=== PATIENT | male | born 1990 | race African-American/Black ===

== ENCOUNTER 2018-06-23 05:04 | Emergency (ER) | payer OTHER ==
[~2018-06-23] VITALS: Ht 198.1 cm; Wt 140.6 kg
[2018-06-23] MEDS ORDERED: SODIUM CHLORIDE 0.9% 1,000 ML IV ONE (05:30)
[2018-06-23] MEDS ORDERED: FAMOTIDINE (10MG/ML) 2ML VL IV ONE (05:30)
[2018-06-23] MEDS ORDERED: methylPREDNISolone SOD SUCC 125 MG/2 ML VL IV ONE (05:30)
[2018-06-23] MEDS ORDERED: EPINEPHrine HCL 1 MG/1 ML AMP SC ONE (05:30)
[2018-06-23 07:45] VITALS: BP 114/58
== END 2018-06-23 08:25 | disposition home or self-care (01) ==
LOC: ER 05:07
DX: T78.40XA Allergy, unspecified, initial encounter (principal)
CPT/HCPCS: 96372; 96374; 96375; 99284; J0171; J2930; J3490; J7030; 96361